=== PATIENT | female | born 1975 | race Caucasian/White ===

== ENCOUNTER 2017-08-12 09:37 | Day surgery (SDC) | payer BC, OTHER ==
[2017-08-11 10:32] VITALS: BMI 24.9
[~2017-08-12 09:37] MED LIST: LACTATED RINGERS 1,000 ML IV SCH; LIDOCAINE 1% 20 ML VIAL (10MG/ML) FOR IV START INTRADERMA PRN; MIDAZOLAM 2 MG/2 ML VIAL IV PRN
[2017-08-12 10:26] VITALS: RESP 16; TEMP 98.5
[2017-08-12] MEDS ORDERED: PROPOFOL 10 MG/ML 20 ML VIAL IV ONE (10:44)
[2017-08-12] MEDS ORDERED: LIDOCAINE 1% INJ 10MG/ML (20 ML MDV) ONE (10:44)
--- NOTE | 2017-08-12 10:54 | P.GSHP ---
History of Present Illness H&P Date: 08/12/17 Chief Complaint: GERD This a 41-year-old female referred from Dr. Tricia haywood. Patient is today for EGD. She's had issues with GERD. 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 05/29/17 Past Anesthesia/Blood Transfusion Reactions: Previous Problems w/ Anesthesia, Postoperative Nausea & Vomiting (PONV) Additional Past Anesthesia/Blood Transfusion Reaction / Comment(s): "takes me a long time to wake up" Smoking Status: Never smoker - Past Family History Father History Unknown: Yes Family Medical History: Hypertension Mother History Unknown: Yes Family Medical History: COPD Brother(s) History Unknown: Yes Family Medical History: Hypertension Medications and Allergies Home Medications Medication Instructions Recorded Confirmed Type Omeprazole [PriLOSEC] 20 mg PO AC-BRKFST 09/24/14 08/11/17 History lamoTRIgine [LaMICtal] 25 mg PO HS 08/11/17 08/11/17 History Allergies Allergy/AdvReac Type Severity Reaction Status Date / Time naproxen Allergy Rash/Hives Verified 08/12/17 09:57 hydromorphone HCl AdvReac Nausea & Verified 08/12/17 09:57 [From Dilaudid] Vomiting Surgical - Exam Vital Signs Temp Pulse Resp BP Pulse Ox 98.5 F 77 16 110/71 99 08/12/17 10:09 08/12/17 10:09 08/12/17 10:09 08/12/17 10:09 08/12/17 10:09 - General well developed, no distress - Eyes PERRL - ENT normal pinna - Neck no masses - Respiratory normal expansion - Cardiovascular Rhythm: regular - Abdomen Abdomen: soft, non tender Assessment and Plan Assessment: GERD. We'll perform EGD.
--- NOTE | 2017-08-12 11:09 | P.OP ---
Date of Procedure: 08/12/17 Preoperative Diagnosis: GERD Postoperative Diagnosis: Hiatal hernia Antral gastritis Esophagitis Procedure(s) Performed: EGD Anesthesia: MAC Surgeon: Zackary Gonzalez Pathology: other (Antrum, esophagus) Condition: stable Disposition: PACU Description of Procedure: The patient's placed on the endoscopy table in the lateral position. She received IV sedation. The gastroscope was placed oropharynx passed in the esophagus and stomach. Scope was then placed through the pylorus. The first and second portion of the duodenum appeared normal. The scope was then brought back the antrum and this was mildly inflamed. Biopsies performed. The scope was then retroflexed and remainder of the stomach appeared normal. There was some evidence of some fundic polyps. The patient had a moderate size sliding hiatal hernia. The GE junction was at 38 cm. The distal esophagus appeared inflamed a biopsies performed. The proximal esophagus appeared normal. The scope was withdrawn for patient.
[2017-08-12 11:33] VITALS: BP 116/55; PULSE 68
== END 2017-08-12 11:49 | disposition home or self-care (01) ==
LOC: ORWHC2ENDO 09:37
PROVIDERS: ATTEND Surgery
DX: K29.50 Unspecified chronic gastritis without bleeding (principal); K44.9 Diaphragmatic hernia without obstruction or gangrene; K21.0 Gastro-esophageal reflux disease with esophagitis; Z88.6 Allergy status to analgesic agent; Z88.5 Allergy status to narcotic agent; Z79.899 Other long term (current) drug therapy
CPT/HCPCS: 81025; 88305; 43239; J2001; J2704

== ENCOUNTER 2018-01-29 14:42 | Emergency (ER) | payer OTHER ==
[2018-01-29] MEDS ORDERED: ONDANSETRON 4 MG/2 ML VIAL IVP STA ×2 (15:25→18:27)
[2018-01-29] MEDS ORDERED: SODIUM CHLORIDE 0.9% 2,000 ML IV ONE (15:25)
--- NOTE | 2018-01-29 15:28 | ED ---
General Adult HPI - General Chief complaint: Nausea/Vomiting/Diarrhea Stated complaint: Vomiting, Weakness Time Seen by Provider: 01/29/18 15:18 Source: patient Mode of arrival: wheelchair Limitations: no limitations - History of Present Illness Initial comments: Patient 42-year-old female presents with a chief complaint of shaking since Thursday. The patient states that she recently got a hepatitis vaccine and a flu shot same day. Patient states she has just felt under the weather and more sleepy since then. She denies any headache, chest pain or shortness of breath. Patient states she's been nauseated and been dry heaving. The patient cannot identify any other inciting incidents is to her symptoms. There are no aggravating or alleviating factors. Timing is been constant. Patient is nonmeasured fever but states she thinks she has had a "low-grade fever". - Related Data Home Medications Medication Instructions Recorded Confirmed Ergocalciferol [Vitamin D2 50,000 unit PO Q7DAYS 01/29/18 01/29/18 (DRISDOL)] Ibuprofen [Motrin] 800 mg PO DAILY 01/29/18 01/29/18 lamoTRIgine [LaMICtal] 25 mg PO DAILY 01/29/18 01/29/18 Previous Rx's Medication Instructions Recorded Ondansetron Odt [Zofran Odt] 4 mg PO Q8HR PRN #12 tab 01/29/18 Allergies Allergy/AdvReac Type Severity Reaction Status Date / Time naproxen Allergy Rash/Hives Verified 01/29/18 16:08 hydromorphone HCl AdvReac Nausea & Verified 01/29/18 16:08 [From Dilaudid] Vomiting Review of Systems ROS Statement: Those systems with pertinent positive or pertinent negative responses have been documented in the HPI. ROS Other: All systems not noted in ROS Statement are negative. 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 05/29/17 Past Anesthesia/Blood Transfusion Reactions: Previous Problems w/ Anesthesia, Postoperative Nausea & Vomiting (PONV) Additional Past Anesthesia/Blood Transfusion Reaction / Comment(s): "takes me a long time to wake up" Past Psychological History: Anxiety Smoking Status: Never smoker Past Alcohol Use History: None Reported Past Drug Use History: None Reported - Past Family History Father History Unknown: Yes Family Medical History: Hypertension Mother History Unknown: Yes Family Medical History: COPD Brother(s) History Unknown: Yes Family Medical History: Hypertension General Exam Limitations: no limitations General appearance: alert, in no apparent distress Head exam: Present: atraumatic, normocephalic Eye exam: Present: normal appearance, PERRL, EOMI, scleral icterus ENT exam: Present: normal exam, normal oropharynx, mucous membranes moist Neck exam: Present: normal inspection Respiratory exam: Present: normal lung sounds bilaterally, respiratory distress Cardiovascular Exam: Present: regular rate, normal rhythm GI/Abdominal exam: Present: soft. Absent: distended, tenderness Rectal exam: Present: deferred Extremities exam: Present: normal inspection Back exam: Present: normal inspection Neurological exam: Present: alert, oriented X3. Absent: motor sensory deficit Psychiatric exam: Present: normal affect, normal mood Skin exam: Present: warm, dry, intact Course Vital Signs 01/29/18 01/29/18 01/29/18 14:44 15:59 17:25 Temperature 98.4 F 100.1 F H 98.7 F Pulse Rate 83 79 Respiratory 16 18 Rate Blood Pressure 121/74 113/70 O2 Sat by Pulse 100 98 Oximetry 01/29/18 01/29/18 18:58 19:15 Temperature 98.8 F 98.1 F Pulse Rate 75 85 Respiratory 18 16 Rate Blood Pressure 119/89 124/87 O2 Sat by Pulse 98 98 Oximetry Medical Decision Making - Medical Decision Making Patient presents with chief complaint of fatigue for one week. On initial evaluation, vital signs are stable, patient is in no acute distress. Patient be evaluated with basic labs including urinalysis and serum test. She will be given 2 L of IV fluid and Zofran. patient presents with a sleeping mask eye cover and is slow to participate with exam. she is NV intact and able to move all extremities independently. 8:07 PM Laboratory evaluation of this patient is unremarkable. Urinalysis does not show evidence of infection other ketones in the urine likely secondary to dehydration. Patient given 2 L of IV fluid and Zofran. On reevaluation, patient states that she feels somewhat improved. She feels as if she is able to tolerate by mouth intake. At this time, patient is agreeable with discharge and prescription for Zofran. He was instructed to follow up with primary care in 1-2 days, return to the emergency department if symptoms worsen or change. - Lab Data Result diagrams: 01/29/18 15:58 01/29/18 15:58 Lab Results 01/29/18 01/29/18 01/29/18 Range/Units 15:58 15:58 15:58 WBC 7.7 (3.8-10.6) k/uL RBC 4.79 (3.80-5.40) m/uL Hgb 14.8 (11.4-16.0) gm/dL Hct 42.7 (34.0-46.0) % MCV 89.2 (80.0-100.0) fL MCH 31.0 (25.0-35.0) pg MCHC 34.7 (31.0-37.0) g/dL RDW 12.6 (11.5-15.5) % Plt Count 283 (150-450) k/uL Neutrophils % 76 % Lymphocytes % 16 % Monocytes % 5 % Eosinophils % 1 % Basophils % 0 % Neutrophils # 5.8 (1.3-7.7) k/uL Lymphocytes # 1.3 (1.0-4.8) k/uL Monocytes # 0.4 (0-1.0) k/uL Eosinophils # 0.1 (0-0.7) k/uL Basophils # 0.0 (0-0.2) k/uL Sodium 138 (137-145) mmol/L Potassium 4.1 (3.5-5.1) mmol/L Chloride 106 (98-107) mmol/L Carbon Dioxide 22 (22-30) mmol/L Anion Gap 10 mmol/L BUN 10 (7-17) mg/dL Creatinine 0.58 (0.52-1.04) mg/dL Est GFR (CKD-EPI)AfAm >90 (>60 ml/min/1.73 sqM) Est GFR (CKD-EPI)NonAf >90 (>60 ml/min/1.73 sqM) Glucose 89 (74-99) mg/dL Calcium 9.9 (8.4-10.2) mg/dL Total Bilirubin 0.6 (0.2-1.3) mg/dL AST 19 (14-36) U/L ALT 18 (9-52) U/L Alkaline Phosphatase 53 (38-126) U/L Total Protein 7.3 (6.3-8.2) g/dL Albumin 4.1 (3.5-5.0) g/dL HCG, Qual Not Detected Urine Color Urine Appearance (Clear) Urine pH (5.0-8.0) Ur Specific [place] (1.001-1.035) Urine Protein (Negative) Urine Glucose (UA) (Negative) Urine Ketones (Negative) Urine Blood (Negative) Urine Nitrite (Negative) Urine Bilirubin (Negative) Urine Urobilinogen (<2.0) mg/dL Ur Leukocyte Esterase (Negative) Influenza Type A RNA Not Detected (Not Detectd) Influenza Type B (PCR) Not Detected (Not Detectd) 01/29/18 Range/Units 16:43 WBC (3.8-10.6) k/uL RBC (3.80-5.40) m/uL Hgb (11.4-16.0) gm/dL Hct (34.0-46.0) % MCV (80.0-100.0) fL MCH (25.0-35.0) pg MCHC (31.0-37.0) g/dL RDW (11.5-15.5) % Plt Count (150-450) k/uL Neutrophils % % Lymphocytes % % Monocytes % % Eosinophils % % Basophils % % Neutrophils # (1.3-7.7) k/uL Lymphocytes # (1.0-4.8) k/uL Monocytes # (0-1.0) k/uL Eosinophils # (0-0.7) k/uL Basophils # (0-0.2) k/uL Sodium (137-145) mmol/L Potassium (3.5-5.1) mmol/L Chloride (98-107) mmol/L Carbon Dioxide (22-30) mmol/L Anion Gap mmol/L BUN (7-17) mg/dL Creatinine (0.52-1.04) mg/dL Est GFR (CKD-EPI)AfAm (>60 ml/min/1.73 sqM) Est GFR (CKD-EPI)NonAf (>60 ml/min/1.73 sqM) Glucose (74-99) mg/dL Calcium (8.4-10.2) mg/dL Total Bilirubin (0.2-1.3) mg/dL AST (14-36) U/L ALT (9-52) U/L Alkaline Phosphatase (38-126) U/L Total Protein (6.3-8.2) g/dL Albumin (3.5-5.0) g/dL HCG, Qual Urine Color Light Yellow Urine Appearance Clear (Clear) Urine pH 6.0 (5.0-8.0) Ur Specific [place] 1.012 (1.001-1.035) Urine Protein Negative (Negative) Urine Glucose (UA) Negative (Negative) Urine Ketones 3+ H (Negative) Urine Blood Negative (Negative) Urine Nitrite Negative (Negative) Urine Bilirubin Negative (Negative) Urine Urobilinogen <2.0 (<2.0) mg/dL Ur Leukocyte Esterase Negative (Negative) Influenza Type A RNA (Not Detectd) Influenza Type B (PCR) (Not Detectd) Disposition Clinical Impression: Dehydration, Viral syndrome Disposition: HOME SELF-CARE Condition: Good Instructions: Acute Nausea and Vomiting (ED) Is patient prescribed a controlled substance at d/c from ED?: No Referrals: Tricia Lovelace DO [Primary Care Provider] - 1-2 days
[2018-01-29 16:12] LABS: Basophils % (A) 0 %; Eosinophils # (A) 0.1 k/uL (0-0.7); Eosinophils % (A) 1 %; HCT 42.7 % (34.0-46.0); HGB 14.8 gm/dL (11.4-16.0); Lymphocytes # (A) 1.3 k/uL (1.0-4.8); Lymphocytes % (A) 16 %; MCHC 34.7 g/dL (31.0-37.0); MCV 89.2 fL (80.0-100.0); Mean Platelet Volume 6.6; Monocytes # (A) 0.4 k/uL (0-1.0); Monocytes % (A) 5 %; Neutrophils # (A) 5.8 k/uL (1.3-7.7); Neutrophils % (A) 76 %; Platelet Count 283 k/uL (150-450); RBC 4.79 m/uL (3.80-5.40); RDW 12.6 % (11.5-15.5); WBC 7.7 k/uL (3.8-10.6)
[2018-01-29 16:20] LABS: ALT 18 U/L (9-52); AST 19 U/L (14-36); Albumin 4.1 g/dL (3.5-5.0); Alkaline Phosphatase 53 U/L (38-126); Anion Gap 10 mmol/L; Blood Urea Nitrogen 10 mg/dL (7-17); Calcium 9.9 mg/dL (8.4-10.2); Carbon Dioxide 22 mmol/L (22-30); Chloride 106 mmol/L (98-107); Glucose 89 mg/dL (74-99); Potassium 4.1 mmol/L (3.5-5.1); Sodium 138 mmol/L (137-145); Total Bilirubin 0.6 mg/dL (0.2-1.3); Total Protein 7.3 g/dL (6.3-8.2)
[2018-01-29 16:30] LABS: HCG,Qualitative Serum Not Detected
[2018-01-29] MEDS ORDERED: ACETAMINOPHEN TAB 500 MG TAB PO STA (16:33)
[2018-01-29] MEDS ORDERED: IBUPROFEN 800 MG TAB PO STA (16:33)
[2018-01-29 17:09] LABS: Appearance,Urine Clear (Clear); Bilirubin,Urine Negative (Negative); Blood,Urine Negative (Negative); Color,Urine Light Yellow; Glucose,Urine (UA) Negative (Negative); Ketones,Urine 3+ (Negative); Leukocyte Esterase,Urine Negative (Negative); Nitrite,Urine Negative (Negative); Protein,Urine Negative (Negative); Specific Gravity,Urine 1.012 (1.001-1.035); Urobilinogen,Urine <2.0 mg/dL (<2.0)
[2018-01-29 19:17] VITALS: RESP 16
[2018-01-29 20:16] VITALS: BP 108/77; PULSE 71; TEMP 98.2
== END 2018-01-29 20:18 | disposition home or self-care (01) ==
LOC: EC 14:42
DX: E86.0 Dehydration (principal); B34.9 Viral infection, unspecified; F41.9 Anxiety disorder, unspecified; Z79.1 Long term (current) use of non-steroidal anti-inflammatories (NSAID); Z79.899 Other long term (current) drug therapy; Z88.5 Allergy status to narcotic agent; Z88.6 Allergy status to analgesic agent
CPT/HCPCS: 36415; 80053; 85025; 81003; 84703; 87502; 99284; 96374; 96375; 96361 ×2; J2405

== ENCOUNTER → 2022-09-08 | Outpatient (CLI) | payer OTHER ==
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
== END | disposition home or self-care (01) ==
LOC: RADXRMAIN 12:52
PROVIDERS: ATTEND Emergency Medicine
DX: S63.8X2A Sprain of other part of left wrist and hand, initial encounter (principal); S56.012A Strain of flexor muscle, fascia and tendon of left thumb at forearm level, initial encounter; X58.XXXA Exposure to other specified factors, initial encounter

== ENCOUNTER → 2022-10-01 | Outpatient (CLI) | payer OTHER ==
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
== END | disposition home or self-care (01) ==
LOC: LABWHC1 16:29
PROVIDERS: ATTEND Emergency Medicine
DX: S63.8X2D Sprain of other part of left wrist and hand, subsequent encounter (principal); S56.01 Strain of flexor muscle, fascia and tendon of thumb at forearm level; X58.XXXD Exposure to other specified factors, subsequent encounter

== ENCOUNTER → 2022-10-13 | Outpatient (CLI) | payer BC ==
--- NOTE | 2022-10-19 10:13 | MR ---
EXAMINATION TYPE: MR knee LT wo con DATE OF EXAM: 10/13/2022 COMPARISON: None HISTORY: Lt knee pain TECHNIQUE: Multiplanar, multisequence imaging of the left knee is performed without IV contrast. FINDINGS: The osseous structures are intact and there is no bone contusion, bone marrow edema or fracture. The cruciate and collateral ligaments are intact. There is minimal osteoarthritic changes lateral compartment knee with minimal hypertrophic spurring. There is no significant thinning of the articular cartilages. There is a moderate joint effusion. There is a plica in the superior joint recess. There is a 2.1 x 6 .1 x 1.8 cm Aldrich cyst with septation. IMPRESSION: 1. Moderate joint effusion with large Aldrich's cyst. 2. Minimal osteoarthritic change of the lateral compartment of the knee. 3. No meniscal or ligamentous injury.
== END | disposition home or self-care (01) ==
LOC: RADMRIMAIN 20:15
PROVIDERS: ATTEND Orthopaedic Surgery
DX: M17.12 Unilateral primary osteoarthritis, left knee (principal); M25.462 Effusion, left knee; M71.22 Synovial cyst of popliteal space [Baker], left knee

== ENCOUNTER 2022-11-27 12:24 | Day surgery (SDC) | payer BC ==
[2022-11-18 15:15] VITALS: BMI 27.8
--- NOTE | 2022-11-26 13:56 | HP ---
HISTORY AND PHYSICAL DATE OF SCHEDULED SURGERY: 11/27/2022 HISTORY OF PRESENT ILLNESS: Lu Montelongo is a 47-year-old patient who is seen with progressive left knee pain. We discussed options for treatment. She elected to proceed with left knee arthroscopy. Consent was obtained. PAST MEDICAL HISTORY: Noncontributory. SURGICAL HISTORY: Jaw surgery. DAILY MEDICATIONS: 1. Fluoxetine. 2. Propranolol. 3. Tylenol. ALLERGIES: None. SOCIAL HISTORY: She denies current tobacco use. PHYSICAL EVALUATION OF LEFT KNEE: Range of motion is negative to 130 degrees, mild effusion. Tenderness along the medial joint line. Positive medial Mariam's. Ligaments stable. Hip rotation without pain. Distal neurovascular exam intact. RADIOGRAPHS: Radiographs of the left knee revealed moderate medial compartment osteoarthritis. MRI of the left knee revealed a plica, moderate effusion, large Aldrich cyst, and mild osteoarthritis. IMPRESSION: Internal derangement of left knee with medial plica and possible meniscal tear. PLAN: Left knee arthroscopy with suction, medial plica, possible partial meniscectomy and debridement. MMODL / IJN: [id number] /
[2022-11-27] MEDS ORDERED: DEXAMETHASONE SOD PHOSPHATE 4 MG/ML 1 ML VIAL IV ONE (12:38)
[2022-11-27] MEDS ORDERED: LIDOCAINE 1% (10MG/ML) FOR IV START INTRADERMA PRN (12:38)
[2022-11-27] MEDS ORDERED: ONDANSETRON 4 MG/2 ML VIAL IVP ONE (12:38)
[2022-11-27] MEDS ORDERED: MIDAZOLAM 2 MG/2 ML VIAL IV PRN (12:38)
[2022-11-27] MEDS: LACTATED RINGERS 1,000 ML IV SCH ×3 (13:23→16:20)
[2022-11-27] MEDS ORDERED: SCOPOLAMINE 1 MG/72 HR PATCH TRANSDERM ONE (13:24)
[2022-11-27] MEDS ORDERED: KETOROLAC 15 MG/ML 1 ML VIAL ONE (13:52)
[2022-11-27] MEDS ORDERED: PROPOFOL 10 MG/ML 20 ML VIAL IV ONE (13:52)
[2022-11-27] MEDS ORDERED: fentaNYL (PF) 50 MCG/ML 2 ML AMP ONE (13:52)
[2022-11-27] MEDS ORDERED: LIDOCAINE 2% INJ 20 MG/ML (2 ML VIAL) ONE (13:52)
[2022-11-27] MEDS ORDERED: MIDAZOLAM 2 MG/2 ML VIAL ONE (13:52)
[2022-11-27] MEDS ORDERED: BUPIVACAINE (PF) 0.25% 10 ML VIAL SQ ONE (14:13)
--- NOTE | 2022-11-27 14:37 | P.OP ---
Date of Procedure: 11/27/22 Preoperative Diagnosis: Internal derangement left knee Postoperative Diagnosis: 1. Tear medial and lateral meniscus left knee 2. Grade 4 chondromalacia medial femoral condyle left knee 3. Grade 4 chondromalacia medial tibial plateau left knee 4. Reactive synovitis medial, lateral and suprapatellar compartments left knee Procedure(s) Performed: 1. Arthroscopic partial medial and lateral meniscectomy left knee 2. Arthroscopic microfracture medial femoral condyle left knee 3. Arthroscopic partial synovectomy medial, lateral and suprapatellar compartments left knee Anesthesia: HARDIKA, local Surgeon: Alexis Rodriguez Estimated Blood Loss (ml): 6 Pathology: none sent Condition: stable Disposition: PACU Indications for Procedure: 47-year-old patient seen with progressive left knee pain. After having treatment options discussed, she elected to proceed with arthroscopy. Operative Findings: See description of procedure Description of Procedure: Patient was taken to the operative suite. Patient underwent a general a nesthetic by the department of anesthesia. Patient was given preoperative antibiotics. The left lower extremity was placed in a well-padded arthroscopic leg hu. The left leg was prepped and draped in the normal sterile orthopedic fashion. A lateral parapatellar and suprapatellar incision was made. Trochars were inserted. Arthroscopy was initiated. Suprapatellar pouch revealed diffuse thick reactive synovitis. The patellofemoral joint appeared to articulate congruently. There was grade 1 chondromalacia changes of the patellofemoral joint without osteochondral tears.. The scope was guided into the medial gutter. No loose bodies or plica were identified. The scope was then guided into the medial compartment. A medial parapatellar incision was made. Trocar inserted followed by probe. There was a radial tear mid body/posterior horn medial meniscus. There was an area of grade 4 chondromalacia involving the medial tibial plateau with exposed bone. There was area of grade 4 chondromalacia of the medial femoral condyle with exposed bone. There was thick reactive synovitis anteriorly. I performed a partial medial meniscectomy getting down to stable meniscal tissue. I performed a partial synovectomy decompressing the thick reactive synovitis. I now introduced a microfracture awl and I performed a microfracture to the area of exposed bone medial femoral condyle penetrating the bone with resultant bleeding of the microfracture site. The residual meniscus was probed and was found to be stable. The residual osteochondral surface appeared stable. There was good decompression of the synovitis. Scope and probe were then guided into the intercondylar notch. Cruciates were identified, probed and found to be stable. The scope and probe were then guided into lateral compartment. There was a radial tear mid body lateral meniscus. There were grade 1 chondromalacia changes of lateral compartment. There was some thick reactive synovitis anteriorly. I performed a partial lateral meniscectomy getting down to stable meniscal tissue. I performed a partial synovectomy decompressing reactive synovitis. The residual meniscus was stable. There was good decompression of synovitis. The scope was in guided back into the suprapatellar compartment. I introduced a motorized shaver into the suprapatellar compartment. I performed a partial synovectomy decompressing the thick reactive synovitis. Shaver was removed. There was good decompression of the synovitis. I now took one more look around the entire knee, no residual debris. Instruments were now removed from the joint. The joint was infiltrated with .25% Marcaine. Steri-Strips were applied to the portal sites. Sterile dressings were applied. The patient was placed into a RAFAL hose. No tourniquet was utilized. The patient was awakened, transferred to a bed and taken to recovery stable satisfactory condition.
[2022-11-27 14:38] VITALS: TEMP 97.3
[2022-11-27] MEDS ORDERED: traMADol 50 MG TAB ONE (15:29)
[2022-11-27 15:32] VITALS: RESP 18
[2022-11-27 15:56] VITALS: BP 115/73; PULSE 79
== END 2022-11-27 16:45 | disposition home or self-care (01) ==
LOC: OR 12:24
PROVIDERS: ATTEND Orthopaedic Surgery
DX: S83.242A Other tear of medial meniscus, current injury, left knee, initial encounter (principal); S83.282A Other tear of lateral meniscus, current injury, left knee, initial encounter; M94.262 Chondromalacia, left knee; M65.162 Other infective (teno)synovitis, left knee; M54.81 Occipital neuralgia; Z79.1 Long term (current) use of non-steroidal anti-inflammatories (NSAID); Z79.899 Other long term (current) drug therapy; Z88.6 Allergy status to analgesic agent; Z88.8 Allergy status to other drugs, medicaments and biological substances; Z98.890 Other specified postprocedural states; X58.XXXA Exposure to other specified factors, initial encounter
CPT/HCPCS: 29879; 29880; 81025; J2250; J1100; J2405; J0690; J3010; J1885; J2704; J2001; J0665